=== PATIENT | female | born 2000 | race Two or more races ===

== ENCOUNTER 2024-12-24 09:36 | Emergency (ER) | payer MEDICAID ==
[~2024-12-24] VITALS: Ht 154.9 cm; Wt 85.3 kg
[2024-12-24 09:51] VITALS: BP 126/62; TEMP 98.2
[2024-12-24] MEDS ORDERED: IBUPROFEN 600 MG TABLET ONE (10:12)
[2024-12-24] MEDS: IBUPROFEN 600 MG TABLET PO ONE (10:13)
[2024-12-24 11:06] VITALS: O2SAT 98
== END 2024-12-24 11:11 | disposition home or self-care (01) ==
LOC: ER 09:46
DX: M25.571 Pain in right ankle and joints of right foot (principal)
CPT/HCPCS: 73610-TC; 73630-TC